=== PATIENT | female | born 1970 | race Caucasian/White ===

== ENCOUNTER 2016-09-07 16:42 | Emergency (ER) | payer OTHER ==
[~2016-09-07] VITALS: Ht 165.1 cm; Wt 70.0 kg
[~2016-09-07 16:42] MED LIST: ALBU0.63 NEB; ALBU8.5H3 PO; BECL8.7A5 INH
[2016-09-07 16:54] VITALS: BP 135/84
[2016-09-07 17:45] LABS: GIANT PLATELETS 1+; LARGE PLATELETS 1+
== END 2016-09-07 18:45 | disposition home or self-care (01) ==
LOC: ED 18:39
DX: M25.561 Pain in right knee (principal)
CPT/HCPCS: 36415; 85025; 85651; 86141; 99284

== ENCOUNTER 2016-10-06 18:57 | Emergency (ER) | payer OTHER ==
[~2016-10-06] VITALS: Ht 165.1 cm; Wt 70.1 kg
[2016-10-06] MEDS ORDERED: ALBUTEROL SULFATE 2.5 MG/3 ML ONE (19:22)
[2016-10-06] MEDS ORDERED: ALBUTEROL SULFATE 2.5 MG/3 ML NPPB ONE (19:30)
[2016-10-06 19:56] LABS: BLOOD UREA NITROGEN 18 mg/dL (7-18)
[2016-10-06 21:21] VITALS: BP_DIAS 76
[2016-10-06 22:30] VITALS: BP_SYST 123
== END 2016-10-06 22:32 | disposition home or self-care (01) ==
LOC: ED 19:43
DX: R10.31 Right lower quadrant pain (principal); J45.901 Unspecified asthma with (acute) exacerbation; J45.21 Mild intermittent asthma with (acute) exacerbation; R10.33 Periumbilical pain; S39.012A Strain of muscle, fascia and tendon of lower back, initial encounter; Z88.6 Allergy status to analgesic agent; X58.XXXA Exposure to other specified factors, initial encounter; Y93.89 Activity, other specified; Y99.8 Other external cause status; Y92.89 Other specified places as the place of occurrence of the external cause
CPT/HCPCS: 36415; 71020; 74176; 80048; 81001; 82040; 84703; 85025; 87086; 93005; 94640; J7613

== ENCOUNTER 2016-10-23 19:18 | Emergency (ER) | payer OTHER ==
[~2016-10-23] VITALS: Ht 165.1 cm; Wt 71.4 kg
[2016-10-23 19:21] VITALS: BP 117/83
[2016-10-23] MEDS ORDERED: OXYcodone/APAP 5/325MG TABLET ONE (20:47)
[2016-10-23] MEDS ORDERED: KETOROLAC 30 MG/1 ML ONE (20:54)
[2016-10-23] MEDS ORDERED: KETOROLAC 30 MG/1 ML IM ONE (21:00)
[2016-10-23] MEDS ORDERED: OXYcodone/APAP 5/325MG TABLET PO ONE (21:00)
== END 2016-10-23 22:10 | disposition home or self-care (01) ==
LOC: ED 21:25
DX: M51.36 Other intervertebral disc degeneration, lumbar region (principal); R10.33 Periumbilical pain; M54.5 Low back pain; J45.909 Unspecified asthma, uncomplicated
CPT/HCPCS: 72110; 73502; 74000; 76770; 81001; 87086; 96372; 99285; J1885

== ENCOUNTER → 2017-02-11 | Outpatient (CLI) | payer OTHER ==
[~2017-02-11] MED LIST changes: -ALBU8.5H3 PO; +ALBU8.5H8 PO; -BECL8.7A5 INH; +BECL8.7A7 INH
== END | disposition home or self-care (01) ==
LOC: RAD 08:24
PROVIDERS: ATTEND Family Medicine
DX: M51.26 Other intervertebral disc displacement, lumbar region (principal); M51.27 Other intervertebral disc displacement, lumbosacral region; M47.896 Other spondylosis, lumbar region; M47.897 Other spondylosis, lumbosacral region; M48.061 Spinal stenosis, lumbar region without neurogenic claudication
CPT/HCPCS: 72148